=== PATIENT | male | born 1955 | race Caucasian/White ===

== ENCOUNTER → 2016-05-27 | Outpatient (CLI) | payer OTHER ==
[2016-05-27 08:30] LABS: LDL CHOLESTEROL,CALCULATED 27.6 mg/dL
[2016-05-27 08:31] LABS: ASPARTATE AMINO TRANSFERASE 36 IU/L (21-57); BILIRUBIN,TOTAL 0.7 mg/dL (0.3-1.2); BLOOD UREA NITROGEN 15 mg/dL (7-22); BUN/CREATININE RATIO 18.75 (6-20); CALCIUM 9.7 mg/dL (8.7-10.7); CHLORIDE 101 meq/L (98-112); CREATININE 0.8 mg/dL (0.70-1.50); EST GLOMERULAR FILTRATION > 60 (>60 ml/min/1.73m(2)); GLUCOSE 205 mg/dL (78-110); POTASSIUM 4.2 meq/L (3.8-5.2); SODIUM 138 meq/L (135-145); TOTAL PROTEIN 7.1 g/dL (6.1-8.0)
[2016-05-27 08:32] LABS: HEMOGLOBIN A1C 7.57 % (4.2-6.0); MEAN BLOOD GLUCOSE (CALC) 166.081 mg/dL
[2016-05-27 08:45] LABS: CREATININE, URINE 73.1 MG/DL (15-500)
== END ==
LOC: LAB 07:57
PROVIDERS: ATTEND Internal Medicine
DX: E11.9 Type 2 diabetes mellitus without complications (principal); E78.5 Hyperlipidemia, unspecified; I10 Essential (primary) hypertension
CPT/HCPCS: 36415; 80053; 80061; 82043; 82550; 83036

== ENCOUNTER → 2016-11-25 | Outpatient (CLI) | payer OTHER ==
[2016-11-25 08:42] LABS: HEMOGLOBIN A1C 7.87 % (4.2-6.0)
[2016-11-25 09:17] LABS: BLOOD UREA NITROGEN 14 mg/dL (7-22); CALCIUM 9.8 mg/dL (8.7-10.7); CHOL/HDL RATIO 3.75 RATIO (0-4.0); EST GLOMERULAR FILTRATION > 60 (>60 ml/min/1.73m(2)); HDL CHOLESTEROL 29 mg/dL (40-150); SERUM ALBUMIN 4.4 g/dL (3.5-4.8); SERUM CHOLESTEROL 109 mg/dL (120-200)
== END ==
LOC: LAB 08:12
PROVIDERS: ATTEND Internal Medicine
DX: E11.9 Type 2 diabetes mellitus without complications (principal); E78.5 Hyperlipidemia, unspecified; I10 Essential (primary) hypertension
CPT/HCPCS: 36415; 80053; 80061; 82043; 82550; 83036